=== PATIENT | male | born 1955 | race Caucasian/White ===

== ENCOUNTER 2022-02-07 00:50 | Inpatient (IN) | payer MEDICARE, OTHER ==
[~2022-02-07] VITALS: Ht 167.6 cm; Wt 89.7 kg
[2022-02-07] MEDS ORDERED: SODIUM CHLORIDE 0.9% 500 ML IV ONE (01:15)
[2022-02-07] MEDS ORDERED: PANTOPRAZOLE SODIUM 40 MG/VIAL IVP ONE (01:15)
[2022-02-07] MEDS ORDERED: ONDANSETRON HCL 4 MG/2 ML VIAL IVP ONE (01:15)
[2022-02-07 01:26] LABS: BASOPHILS % (AUTO) 0.4 % (0.0-2.0); EOSINOPHILS % (AUTO) 0.1 % (1.0-6.0); HEMATOCRIT 37.9 % (41-53); LYMPHOCYTES # (AUTO) 0.8 K/uL (1.0-4.8); MEAN CORPUSCULAR HEMOGLOBIN 30.1 pg (26.0-34.0); MEAN CORPUSCULAR HGB CONC 34.3 G/dL (31.0-37.0); MEAN CORPUSCULAR VOLUME 88 fL (80-100); MONOCYTES # (AUTO) 0.7 K/uL (0.1-1.0); MONOCYTES % (AUTO) 8.3 % (2.0-9.0); NEUTROPHILS # (AUTO) 6.4 K/uL (1.8-7.7); NEUTROPHILS % (AUTO) 81.2 % (40.0-70.0); PLATELET COUNT (AUTO) 148 K/uL (150-450); RED BLOOD CELL COUNT(AUTO) 4.31 MIL/uL (4.50-5.90); RED CELL DISTRIBUTION WIDTH 16.1 % (11.5-14.5)
[2022-02-07 01:36] LABS: CALCIUM, TOTAL 8.8 mg/dL (8.8-10.5); CREATININE 3.95 mg/dL (0.60-1.30); POTASSIUM 3.8 mmol/L (3.5-5.1)
[2022-02-07] MEDS ORDERED: FOLI0.8T22 GT (01:36)
[2022-02-07] MEDS ORDERED: NIFE-39 GT (01:36)
[2022-02-07] MEDS ORDERED: ATOR40TA28 GT (01:36)
[2022-02-07] MEDS ORDERED: AMIN30LI7 GT (01:36)
[2022-02-07] MEDS ORDERED: SEVE800 GT (01:36)
[2022-02-07] MEDS ORDERED: CHOL25TA4 GT (01:36)
[2022-02-07] MEDS ORDERED: TRAM50TA4 GT (01:36)
[2022-02-07] MEDS ORDERED: CLON1PAT14 TD (01:36)
[2022-02-07] MEDS ORDERED: [UNRECOGNIZED DRUG - CODE] SQ (01:36)
[2022-02-07] MEDS ORDERED: TERA5CAP77 GT (01:36)
[2022-02-07] MEDS ORDERED: MINO2.5T3 GT (01:36)
[2022-02-07] MEDS ORDERED: HYDR50TA36 GT (01:36)
[2022-02-07] MEDS ORDERED: FAMO20 GT (01:36)
[2022-02-07] MEDS ORDERED: LABE200T56 GT (01:36)
[2022-02-07 01:40] LABS: PROTHROMBIN TIME 10.8 SEC (9.4-11.6)
[2022-02-07 01:41] LABS: ALBUMIN 3.3 g/dL (3.4-5.0); BILIRUBIN,TOTAL 0.4 mg/dL (0.1-1.0); TOTAL PROTEIN, SERUM 7.5 g/dL (6.4-8.2)
[2022-02-07 01:57] LABS: COVID AG,FIA SOURCE NASOPHARYNGEAL
[2022-02-07] MEDS ORDERED: ONDANSETRON HCL 4 MG/2 ML VIAL IVP PRN ×2 (02:15→03:00)
[2022-02-07] MEDS ORDERED: ACETAMINOPHEN 325 MG TABLET PO PRN ×2 (02:15→03:00)
[2022-02-07] MEDS ORDERED: DEXTROSE 50%-WATER 25 GM/50 ML SYRINGE IVP PRN (08:15)
[2022-02-07] MEDS: CHOLECALCIFEROL (VIT D3) 1,000 UNITS [25 MCG] TABLET GT SCH (08:33)
[2022-02-07] MEDS: PANTOPRAZOLE SODIUM 40 MG/VIAL IVP SCH ×3 (08:41→20:47)
[2022-02-07] MEDS: HydrALAZINE HCL 50 MG TABLET GT SCH ×2 (08:41→20:42)
[2022-02-07] MEDS ORDERED: FAMOTIDINE 20 MG TABLET GT SCH (09:00)
[2022-02-07 09:08] LABS: HEMOGLOBIN 11.9 g/dL (13.5-17.5)
[2022-02-07 10:26] LABS: GLUCOMETER DEV NAME(LOC) ERT.5; GLUCOSE,POINT OF CARE 120 MG/DL (70-110)
[2022-02-07] MEDS ORDERED: CloNIDine 0.3 MG/24 HOUR PATCH TD SCH (11:00)
[2022-02-07] MEDS ORDERED: SEVELAMER CARBONATE 800 MG POWDER PACKET GT SCH (11:00)
[2022-02-07] MEDS ORDERED: PIPERACILLIN/TAZO 3.375 GM/D5W 50 ML IV ONE (12:00)
[2022-02-07 13:16] VITALS: BP 141/77
[2022-02-07 14:21] VITALS: BP 139/76
[2022-02-07] MEDS: PIPERACILLIN SODIUM/TAZOBACTAM 2.25 GM in DEXTROSE 5%-WATER 50 ML IV SCH ×2 (14:43→20:22)
[2022-02-07] MEDS: SEVELAMER CARBONATE 800 MG POWDER PACKET GT SCH ×4 (15:00→20:47)
[2022-02-07] MEDS: TERAZOSIN HCL 5 MG CAPSULE GT SCH (15:01)
[2022-02-07] MEDS: MINOXIDIL 2.5 MG TABLET GT SCH (15:01)
[2022-02-07] MEDS: LABETALOL HCL 200 MG TABLET GT SCH ×2 (15:02→20:43)
[2022-02-07 15:16] LABS: % IRON SATURATION 17.7 % (30-44)
[2022-02-07] MEDS: VITAMIN B COMP/VIT C/FOLIC ACID CAPSULE GT SCH (15:39)
[2022-02-07 17:14] LABS: HEMOGLOBIN 11.4 g/dL (13.5-17.5)
[2022-02-07] MEDS: INSULIN LISPRO 100 UNITS/ML SQ PRN (18:07)
[2022-02-07 19:21] VITALS: BP 102/60
[2022-02-07] MEDS: ATORVASTATIN CALCIUM 40 MG TABLET GT SCH ×2 (20:20→20:47)
[2022-02-07 23:47] VITALS: BP 117/67
[2022-02-08 00:41] LABS: GLUCOMETER DEV NAME(LOC) 5S.1B; GLUCOSE,POINT OF CARE 150 MG/DL (70-110)
[2022-02-08 03:31] VITALS: BP 110/67
[2022-02-08] MEDS: PIPERACILLIN SODIUM/TAZOBACTAM 2.25 GM in DEXTROSE 5%-WATER 50 ML IV SCH ×3 (05:25→20:12)
[2022-02-08 07:21] LABS: GLUCOMETER DEV NAME(LOC) 5S.1B; GLUCOSE,POINT OF CARE 102 MG/DL (70-110)
[2022-02-08 07:32] LABS: BASOPHILS % (AUTO) 1.2 % (0.0-2.0); EOSINOPHILS % (AUTO) 1.5 % (1.0-6.0); HEMATOCRIT 32.7 % (41-53); HEMOGLOBIN 11.2 g/dL (13.5-17.5); LYMPHOCYTES # (AUTO) 1.5 K/uL (1.0-4.8); LYMPHOCYTES % (AUTO) 19.3 % (22.0-44.0); MEAN CORPUSCULAR HEMOGLOBIN 30.3 pg (26.0-34.0); MEAN CORPUSCULAR HGB CONC 34.3 G/dL (31.0-37.0); MEAN CORPUSCULAR VOLUME 89 fL (80-100); MONOCYTES # (AUTO) 0.7 K/uL (0.1-1.0); MONOCYTES % (AUTO) 9.6 % (2.0-9.0); NEUTROPHILS # (AUTO) 5.2 K/uL (1.8-7.7); NEUTROPHILS % (AUTO) 68.4 % (40.0-70.0); PLATELET COUNT (AUTO) 149 K/uL (150-450); RED CELL DISTRIBUTION WIDTH 15.8 % (11.5-14.5)
[2022-02-08 07:39] VITALS: BP 133/80
[2022-02-08 07:46] LABS: CALCIUM, TOTAL 8.3 mg/dL (8.8-10.5); CREATININE 5.93 mg/dL (0.60-1.30); POTASSIUM 4.2 mmol/L (3.5-5.1)
[2022-02-08] MEDS ORDERED: SODIUM CHLORIDE 0.45% 0 ML IV ONE (09:39)
[2022-02-08] MEDS ORDERED: SODIUM CHLORIDE 0.9% 1,000 ML ONE (09:39)
[2022-02-08] MEDS ORDERED: MIDAZOLAM HCL 5 MG/ML VIAL ONE (09:52)
[2022-02-08] MEDS ORDERED: FentaNYL CITRATE PF 100 MCG/2 ML VIAL ONE (09:52)
[2022-02-08 11:51] VITALS: BP 145/90
[2022-02-08] MEDS: SUCRALFATE 1 GM/10 ML SUSPENSION UDCUP PO SCH ×4 (12:16→20:09)
[2022-02-08] MEDS: HydrALAZINE HCL 50 MG TABLET GT SCH ×2 (12:16→20:55)
[2022-02-08] MEDS: MINOXIDIL 2.5 MG TABLET GT SCH (12:17)
[2022-02-08] MEDS: VITAMIN B COMP/VIT C/FOLIC ACID CAPSULE GT SCH (12:17)
[2022-02-08] MEDS: LABETALOL HCL 200 MG TABLET GT SCH ×2 (12:18→20:55)
[2022-02-08] MEDS: TERAZOSIN HCL 5 MG CAPSULE GT SCH (12:18)
[2022-02-08] MEDS: CHOLECALCIFEROL (VIT D3) 1,000 UNITS [25 MCG] TABLET GT SCH (12:18)
[2022-02-08] MEDS: PANTOPRAZOLE SODIUM 40 MG/VIAL IVP SCH ×2 (12:19→20:12)
[2022-02-08] MEDS: SEVELAMER CARBONATE 800 MG POWDER PACKET GT SCH ×3 (12:19→20:09)
[2022-02-08 13:16] LABS: GLUCOMETER DEV NAME(LOC) 5N.1C; GLUCOSE,POINT OF CARE 93 MG/DL (70-110)
[2022-02-08 14:59] VITALS: BP 137/82
[2022-02-08 20:04] VITALS: BP 107/67
[2022-02-08] MEDS: ATORVASTATIN CALCIUM 40 MG TABLET GT SCH (20:09)
[2022-02-08 20:11] LABS: GLUCOMETER DEV NAME(LOC) 5N.3; GLUCOSE,POINT OF CARE 91 MG/DL (70-110)
[2022-02-08] MEDS: INSULIN LISPRO 100 UNITS/ML SQ PRN (20:29)
[2022-02-08 20:54] VITALS: BP 115/65
[2022-02-08 21:01] LABS: GLUCOMETER DEV NAME(LOC) 6N.1; GLUCOSE,POINT OF CARE 180 MG/DL (70-110)
[2022-02-09] VITALS (13 sets, daily range): BP systolic 95–172; BP diastolic 48–100
[2022-02-09] MEDS: PIPERACILLIN SODIUM/TAZOBACTAM 2.25 GM in DEXTROSE 5%-WATER 50 ML IV SCH ×3 (05:02→20:30)
[2022-02-09 05:11] LABS: GLUCOMETER DEV NAME(LOC) 6N.2; GLUCOSE,POINT OF CARE 111 MG/DL (70-110)
[2022-02-09 05:42] LABS: GLUCOMETER DEV NAME(LOC) 6N.2; GLUCOSE,POINT OF CARE 96 MG/DL (70-110)
[2022-02-09] MEDS ORDERED: PROPOFOL 1% 20 ML VIAL IVP ONE (06:24)
[2022-02-09] MEDS ORDERED: LIDOCAINE/PF 2% 5 ML SYRINGE IVP ONE (06:24)
[2022-02-09 06:47] LABS: BASOPHILS % (AUTO) 2.7 % (0.0-2.0); EOSINOPHILS % (AUTO) 2.1 % (1.0-6.0); HEMATOCRIT 31.1 % (41-53); HEMOGLOBIN 10.4 g/dL (13.5-17.5); LYMPHOCYTES # (AUTO) 1.3 K/uL (1.0-4.8); LYMPHOCYTES % (AUTO) 22.8 % (22.0-44.0); MEAN CORPUSCULAR HEMOGLOBIN 29.8 pg (26.0-34.0); MEAN CORPUSCULAR HGB CONC 33.5 G/dL (31.0-37.0); MEAN CORPUSCULAR VOLUME 89 fL (80-100); MONOCYTES # (AUTO) 0.7 K/uL (0.1-1.0); MONOCYTES % (AUTO) 11.8 % (2.0-9.0); NEUTROPHILS # (AUTO) 3.4 K/uL (1.8-7.7); NEUTROPHILS % (AUTO) 60.6 % (40.0-70.0); PLATELET COUNT (AUTO) 169 K/uL (150-450); RED BLOOD CELL COUNT(AUTO) 3.49 MIL/uL (4.50-5.90); RED CELL DISTRIBUTION WIDTH 15.7 % (11.5-14.5)
[2022-02-09 07:09] LABS: CALCIUM, TOTAL 8.1 mg/dL (8.8-10.5); CREATININE 6.64 mg/dL (0.60-1.30); MAGNESIUM 3.1 mg/dL (1.80-2.40); PHOSPHORUS 4.8 mg/dL (2.5-4.9); POTASSIUM 4.1 mmol/L (3.5-5.1)
[2022-02-09] MEDS: MINOXIDIL 2.5 MG TABLET GT SCH (09:00)
[2022-02-09] MEDS: TERAZOSIN HCL 5 MG CAPSULE GT SCH (09:00)
[2022-02-09] MEDS: HydrALAZINE HCL 50 MG TABLET GT SCH ×2 (09:00→20:30)
[2022-02-09] MEDS: LABETALOL HCL 200 MG TABLET GT SCH ×2 (09:00→20:30)
[2022-02-09] MEDS: SEVELAMER CARBONATE 800 MG POWDER PACKET GT SCH ×3 (09:59→21:42)
[2022-02-09] MEDS: VITAMIN B COMP/VIT C/FOLIC ACID CAPSULE GT SCH (09:59)
[2022-02-09] MEDS: SUCRALFATE 1 GM/10 ML SUSPENSION UDCUP PO SCH ×4 (09:59→20:30)
[2022-02-09] MEDS: PANTOPRAZOLE SODIUM 40 MG/VIAL IVP SCH ×2 (09:59→20:30)
[2022-02-09] MEDS: CHOLECALCIFEROL (VIT D3) 1,000 UNITS [25 MCG] TABLET GT SCH (10:00)
[2022-02-09] MEDS ORDERED: SODIUM CHLORIDE 0.9% 2,000 ML ONE (15:11)
[2022-02-09] MEDS ORDERED: NIFE10 GT (15:16)
[2022-02-09] MEDS ORDERED: HEPARIN SODIUM,PORCINE 1,000 UNITS/ML VIAL IVP ONE (16:29)
[2022-02-09 17:36] LABS: GLUCOMETER DEV NAME(LOC) 6N.2; GLUCOSE,POINT OF CARE 135 MG/DL (70-110)
[2022-02-09] MEDS ORDERED: HEPARIN SODIUM,PORCINE 1,000 UNITS/ML VIAL IVCATH ONE ×2 (18:00)
[2022-02-09 20:01] LABS: GLUCOMETER DEV NAME(LOC) 6N.1; GLUCOSE,POINT OF CARE 101 MG/DL (70-110)
[2022-02-09] MEDS: ATORVASTATIN CALCIUM 40 MG TABLET GT SCH (20:30)
[2022-02-09] MEDS ORDERED: WATER FOR IRRIGATION,STERILE 1000 ML SOLUTION BOTTLE ONE (20:54)
[2022-02-09 23:42] LABS: GLUCOMETER DEV NAME(LOC) 6N.1; GLUCOSE,POINT OF CARE 137 MG/DL (70-110)
[2022-02-10 04:07] VITALS: BP 114/70
[2022-02-10] MEDS: PIPERACILLIN SODIUM/TAZOBACTAM 2.25 GM in DEXTROSE 5%-WATER 50 ML IV SCH ×2 (04:44→12:46)
[2022-02-10 07:54] VITALS: BP 134/76
[2022-02-10 08:11] LABS: GLUCOMETER DEV NAME(LOC) 6N.2; GLUCOSE,POINT OF CARE 95 MG/DL (70-110)
[2022-02-10] MEDS: TERAZOSIN HCL 5 MG CAPSULE GT SCH (09:14)
[2022-02-10] MEDS: VITAMIN B COMP/VIT C/FOLIC ACID CAPSULE GT SCH (09:14)
[2022-02-10] MEDS: LABETALOL HCL 200 MG TABLET GT SCH (09:14)
[2022-02-10] MEDS: MINOXIDIL 2.5 MG TABLET GT SCH (09:14)
[2022-02-10] MEDS: HydrALAZINE HCL 50 MG TABLET GT SCH ×2 (09:14→11:41)
[2022-02-10] MEDS: SUCRALFATE 1 GM/10 ML SUSPENSION UDCUP PO SCH ×3 (09:14→17:03)
[2022-02-10] MEDS: PANTOPRAZOLE SODIUM 40 MG/VIAL IVP SCH (09:14)
[2022-02-10] MEDS: SEVELAMER CARBONATE 800 MG POWDER PACKET GT SCH ×2 (09:15→17:03)
[2022-02-10] MEDS: CHOLECALCIFEROL (VIT D3) 1,000 UNITS [25 MCG] TABLET GT SCH (09:15)
[2022-02-10] MEDS ORDERED: BISACODYL 10 MG RECTAL RECTAL SUPPOSITORY PR PRN (10:15)
[2022-02-10 11:39] VITALS: BP 111/69
[2022-02-10 14:27] LABS: GLUCOMETER DEV NAME(LOC) 6N.2; GLUCOSE,POINT OF CARE 127 MG/DL (70-110)
[2022-02-10 15:40] VITALS: BP 122/69
[2022-02-10 23:51] LABS: GLUCOMETER DEV NAME(LOC) 6N.1; GLUCOSE,POINT OF CARE 104 MG/DL (70-110)
[2022-02-13] MEDS ORDERED: DARBEPOETIN ALFA 40 MCG/0.4 ML SYRINGE SQ SCH (09:00)
== END 2022-02-10 20:40 | DRG 380 ==
LOC: EMS 00:55 → 5S 10:57 → 6S 02-08 14:30
PROVIDERS: ADMIT Internal Medicine; ATTEND Internal Medicine
PROC: 0DJ08ZZ Inspection of Upper Intestinal Tract, Via Natural or Artificial Opening Endoscopic (ICD-10-PCS; principal; 2022-02-08 09:45)
PROC: 5A1D70Z Performance of Urinary Filtration, Intermittent, Less than 6 Hours Per Day (ICD-10-PCS; 2022-02-09)
DX: K22.11 Ulcer of esophagus with bleeding (principal); N18.6 End stage renal disease; I13.2 Hypertensive heart and chronic kidney disease with heart failure and with stage 5 chronic kidney disease, or end stage renal disease; I69.351 Hemiplegia and hemiparesis following cerebral infarction affecting right dominant side; K21.9 Gastro-esophageal reflux disease without esophagitis; D63.1 Anemia in chronic kidney disease; E11.22 Type 2 diabetes mellitus with diabetic chronic kidney disease; Z20.822 Contact with and (suspected) exposure to COVID-19; E56.9 Vitamin deficiency, unspecified; E78.5 Hyperlipidemia, unspecified; I50.9 Heart failure, unspecified; K44.9 Diaphragmatic hernia without obstruction or gangrene; K31.9 Disease of stomach and duodenum, unspecified; E78.00 Pure hypercholesterolemia, unspecified; D69.6 Thrombocytopenia, unspecified; Z99.2 Dependence on renal dialysis; Z86.16 Personal history of COVID-19; Z79.899 Other long term (current) drug therapy; Z93.1 Gastrostomy status; I69.320 Aphasia following cerebral infarction
CPT/HCPCS: 71045; 74176; 80048; 80053; 82728; 82962; 83540; 83550; 83690; 83735; 84100; 85014; 85018; 85025; 85610; 86850; 86900; 86901; 87081; 87340; 90935; 93005; 99291; C9113; G0378; J1644; J2250; J2405; J2543; J2704; J3010; J3490; J7030; J7040; J7060; 36415-L1; 36415-TC

== ENCOUNTER 2022-03-03 01:01 | Emergency (ER) | payer MEDICARE, OTHER ==
[~2022-03-03] VITALS: Ht 167.6 cm; Wt 88.0 kg
[~2022-03-03 01:01] MED LIST: AMIN30LI7 GT; ATOR40TA28 GT; CHOL25TA4 GT; CLON1PAT14 TD; FAMO20 GT; FOLI0.8T22 GT; HYDR50TA36 GT; LABE200T56 GT; MINO2.5T3 GT; NIFE10 GT; SEVE800 GT; TERA5CAP77 GT; TRAM50TA4 GT; [UNRECOGNIZED DRUG - CODE] SQ
[2022-03-03 03:21] LABS: BASOPHILS % (AUTO) 0.6 % (0.0-2.0); EOSINOPHILS % (AUTO) 2.5 % (1.0-6.0); HEMATOCRIT 29.6 % (41-53); HEMOGLOBIN 10.1 g/dL (13.5-17.5); LYMPHOCYTES # (AUTO) 1.4 K/uL (1.0-4.8); LYMPHOCYTES % (AUTO) 13.8 % (22.0-44.0); MEAN CORPUSCULAR HEMOGLOBIN 30.3 pg (26.0-34.0); MEAN CORPUSCULAR HGB CONC 34.1 G/dL (31.0-37.0); MEAN CORPUSCULAR VOLUME 89 fL (80-100); MONOCYTES % (AUTO) 9.6 % (2.0-9.0); NEUTROPHILS # (AUTO) 7.7 K/uL (1.8-7.7); NEUTROPHILS % (AUTO) 73.5 % (40.0-70.0); PLATELET COUNT (AUTO) 221 K/uL (150-450); RED BLOOD CELL COUNT(AUTO) 3.33 MIL/uL (4.50-5.90); RED CELL DISTRIBUTION WIDTH 14.4 % (11.5-14.5)
[2022-03-03 03:42] LABS: CALCIUM, TOTAL 10.2 mg/dL (8.8-10.5); CREATININE 9.4 mg/dL (0.60-1.30); POTASSIUM 4.3 mmol/L (3.5-5.1)
[2022-03-03 03:48] LABS: ALBUMIN 2.9 g/dL (3.4-5.0); BILIRUBIN,TOTAL 0.5 mg/dL (0.1-1.0); TOTAL PROTEIN, SERUM 6.9 g/dL (6.4-8.2)
[2022-03-03] MEDS ORDERED: AZITHROMYCIN 500 MG TABLET PO ONE (05:15)
[2022-03-03 06:00] VITALS: BP 183/94
== END 2022-03-03 06:13 ==
LOC: EMS 01:03
DX: E11.22 Type 2 diabetes mellitus with diabetic chronic kidney disease (principal); I13.0 Hypertensive heart and chronic kidney disease with heart failure and stage 1 through stage 4 chronic kidney disease, or unspecified chronic kidney disease; N18.4 Chronic kidney disease, stage 4 (severe); I50.9 Heart failure, unspecified; J18.9 Pneumonia, unspecified organism; Z99.2 Dependence on renal dialysis; E78.00 Pure hypercholesterolemia, unspecified; Z79.899 Other long term (current) drug therapy
CPT/HCPCS: 36415; 74022; 80053; 85025; 93005; 94660; 99285; Q9967